=== PATIENT | male | born 1960 | race American Indian/Alaskan Native ===

== ENCOUNTER → 2017-01-16 14:09 | Emergency (ER) | payer MEDICAID ==
[2017-01-16 15:37] VITALS: BMI 27.5
== END | disposition left against medical advice (07) ==
LOC: C.ER 14:09
DX: Z02.89 Encounter for other administrative examinations (principal)

== ENCOUNTER 2017-01-16 14:59 | Inpatient (IN) | payer MEDICAID ==
[2017-01-16 15:37] VITALS: BMI 27.5
[2017-01-16 17:24] LABS: BASO % 0.6 % (0.0-2.0); EOS # 0.4 K/uL (0.0-0.7); EOS % 6.2 % (0.0-4.0); HEMOGLOBIN 11.5 g/dL (12.0-18.0); LYMPH # 0.6 K/uL (1.0-4.3); MEAN CELL VOLUME 90.7 fL (80.0-94.0); MEAN CORPUSCULAR HEMOGLOBIN 29.9 pg (27.0-31.0); MEAN CORPUSCULAR HGB CONC 32.9 g/dL (33.0-37.0); MEAN PLATELET VOLUME 7.9 fL (7.2-11.7); MONO # 0.6 K/uL (0.0-0.8); MONO % 8.4 % (0.0-10.0); NEUT # 5.4 K/uL (1.8-7.0); NEUT % 75.8 % (50.0-75.0); PLATELET COUNT 288 K/uL (130-400); RBC 3.86 Mil/uL (4.40-5.90); RED CELL DISTRIBUTION WIDTH 13.8 % (11.5-14.5); WHITE BLOOD COUNT 7.1 K/uL (4.8-10.8)
[2017-01-16 17:28] LABS: ALBUMIN 3.4 g/dL (3.5-5.0)
[2017-01-16 17:31] LABS: ALB/GLOB RATIO 0.8 (1.0-2.1); GFR AFRICAN-AMERICAN > 60; GFR NON-AFRICAN AMERICAN > 60
[2017-01-16 17:32] LABS: ALT/SGPT 25 U/L (21-72); AST/SGOT 35 U/L (17-59); BLOOD UREA NITROGEN 7 mg/dL (9-20); CALCIUM 8.7 mg/dl (8.6-10.4)
--- NOTE | 2017-01-16 17:36 | C.PDOC ---
History Of Present Illness Patient is a 56 y/o M presenting with worsening shortness of breath and leg swelling x 3 months. Patient reports that he has been scared so has not followed up but reports that his legs have become more swollen and painful. Denies chest pain, fever/chills. Time Seen by Provider: 01/16/17 16:56 Chief Complaint (Nursing): Lower Extremity Problem/Injury Past Medical History Vital Signs: Last Vital Signs Temp 98.3 F 01/16/17 18:37 Pulse 75 01/16/17 18:37 Resp 20 01/16/17 18:37 BP 136/77 01/16/17 18:37 Pulse Ox 97 01/16/17 18:30 - Medical History PMH: No Chronic Diseases Family History: States: No Known Family Hx - Social History Hx Alcohol Use: Yes Hx Substance Use: Yes - Immunization History Hx Tetanus Toxoid Vaccination: No Hx Influenza Vaccination: No Hx Pneumococcal Vaccination: No Review Of Systems Constitutional: Negative for: Fever, Chills Cardiovascular: Positive for: Edema, Light Headedness. Negative for: Chest Pain , Palpitations Respiratory: Positive for: Shortness of Breath, SOB with Excertion. Negative for: Cough Gastrointestinal: Negative for: Nausea, Vomiting, Abdominal Pain, Diarrhea, Constipation Skin: Positive for: Other (ulcerations and swelling to legs) Neurological: Negative for: Weakness, Numbness Physical Exam - Physical Exam Appears: Well, Non-toxic, No Acute Distress Skin: Normal Color, Warm, Dry Head: Atraumatic, Normacephalic Eye(s): bilateral: Normal Inspection, PERRL, EOMI Chest: Symmetrical Cardiovascular: Rhythm Regular Respiratory: Decreased Breath Sounds Gastrointestinal/Abdominal: Soft, No Tenderness, No Mass, No Distention Extremity: Normal ROM, Other (venous stasis changes to b/l lower extremities. pitting edema b/l. L leg swollen as compared to R with slight erythema and warmth) ED Course And Treatment - Laboratory Results Result Diagrams: 01/16/17 17:13 01/16/17 17:13 O2 Sat by Pulse Oximetry: 97 Medical Decision Making Medical Decision Making: Patient presenting with worsening shortness of breath and leg swelling. Differential dx includes but not limited to: chf vs dvt vs cellulitis. EKG shows NSR at 60bpm with isolated t wave inversion in III and t wave flattening in anterior leads. Cxray negative. BNP WNL. Trop x 1 negative. Lasix ordered. 6:11PM U/s ordered to r/o dvt but unable to be performed today. D-dimer added 7:00PM Will sign out to Krystal Franco to follow-up d-dimer and reevaluate. Disposition - Disposition Disposition Time: 19:00 Condition: FAIR - Clinical Impression Clinical Impression: Leg swelling
[2017-01-16 17:39] LABS: CK-MB 0.83 ng/mL (0.0-3.38)
[2017-01-16 17:40] LABS: B-TYPE NATRIURETIC PEPTIDE 396 pg/mL (0-900)
[2017-01-16 18:15] LABS: EOSINOPHIL 6 % (0-4); LYMPHOCYTE 12 % (20-40); MONOCYTE 6 % (0-10); NEUTROPHIL 76 % (50-75); PLATELET ESTIMATE NORMAL (NORMAL); TOTAL CELLS COUNTED 100
[2017-01-16 18:16] LABS: ANISOCYTOSIS SLIGHT; HYPOCHROMIC SLIGHT; POIKILOCYTOSIS SLIGHT
[2017-01-16] MEDS ORDERED: Piperacillin/Tazobact 3.375 gm 100 ML IVPB STA (19:59)
[2017-01-16] MEDS ORDERED: Enoxaparin 40 mg Syringe SC STA (19:59)
[2017-01-16] MEDS ORDERED: Vancomycin 1 GM 1 GM/250 ML BAG IVPB SCH (20:00)
[2017-01-16] MEDS ORDERED: Vancomycin 1 GM 1 GM/250 ML BAG IVPB STA (20:01)
[2017-01-16] MEDS ORDERED: Enoxaparin 60 mg Syringe ONE (20:17)
[2017-01-16] MEDS ORDERED: Enoxaparin 40 mg Syringe ONE (20:17)
[2017-01-16] MEDS ORDERED: Vancomycin 1 GM 1 GM/250 ML BAG IVPB ONE (20:17)
[2017-01-16] MEDS ORDERED: Piperacillin/Tazobact 3.375 gm 100 ML IVPB ONE (20:18)
[2017-01-16] MEDS ORDERED: Iodixanol 320 MG/ML 100 ML BOTTLE IV ONE (20:32)
--- NOTE | 2017-01-16 22:10 | CT ---
EXAM: CT Angiography Chest With Intravenous Contrast CLINICAL HISTORY: 56 years old, male; Signs and symptoms; Shortness of breath; Additional info: + d dimer, SOB TECHNIQUE: Axial computed tomographic angiography images of the chest with intravenous contrast using pulmonary embolism protocol. This CT exam was performed using one or more of the following dose reduction techniques: automated exposure control, adjustment of the mA and/or kV according to patient size, and/or use of iterative reconstruction technique. MIP reconstructed images were created and reviewed. Coronal and sagittal reformatted images were created and reviewed. CONTRAST: 100 mL of visipaque 320 administered intravenously. EXAM DATE/TIME: 01/16/2017 8:00 PM COMPARISON: There are no prior studies for comparison. FINDINGS: Artifacts: Motion artifact degrades image quality. Heart, aorta and Pulmonary arteries: The heart is mildly enlarged.There is trace fluid in pericardial recesses. There coronary calcifications. Bolus timing and motion limit evaluation of pulmonary arteries. There are no central pulmonary emboli. Peripheral vessels are not adequately evaluated. Lungs and pleural spaces: Trachea and main bronchi are patent.There is no pneumothorax. There is minimal dependent atelectasis bilaterally. There is patchy airspace disease in the right middle and lower lobes. There is scarring in the lingula. There is atelectasis and scarring at both lung bases. There are no effusions. Mediastinum: The esophagus is unremarkable. There is a small hiatal hernia. There are mildly prominent precarinal nodes. There is no hilar adenopathy. Thyroid: Thyroid is not optimally demonstrated. Bones/joints: There are no acute osseous abnormalities. There are small Schmorl's nodes at multiple levels Soft tissues: unremarkable Upper abdomen: There are no acute abnormalities in the visualized portion of the abdomen.There is fatty infiltration of the liver. IMPRESSION: Limited by patient motion and bolus timing, no aneurysm, dissection or central pulmonary embolus; mild cardiomegaly and atherosclerotic disease; anterior space disease in right middle and lower lobes Additional findings as described above.
[2017-01-17 05:48] LABS: BASO % 0.8 % (0.0-2.0); EOS % 15.6 % (0.0-4.0); HEMOGLOBIN 11.8 g/dL (12.0-18.0); LYMPH # 0.7 K/uL (1.0-4.3); LYMPH % 10.9 % (20.0-40.0); MEAN CELL VOLUME 90.1 fL (80.0-94.0); MEAN CORPUSCULAR HEMOGLOBIN 30.7 pg (27.0-31.0); MEAN CORPUSCULAR HGB CONC 34.1 g/dL (33.0-37.0); MEAN PLATELET VOLUME 8.2 fL (7.2-11.7); MONO # 0.6 K/uL (0.0-0.8); NEUT % 62.7 % (50.0-75.0); NRBC % 0.1 % (0.0-2.0); RBC 3.85 Mil/uL (4.40-5.90); WHITE BLOOD COUNT 6.4 K/uL (4.8-10.8)
[2017-01-17 05:49] LABS: ALBUMIN 3.1 g/dL (3.5-5.0)
[2017-01-17 05:52] LABS: ALB/GLOB RATIO 0.7 (1.0-2.1); ALT/SGPT 25 U/L (21-72); AST/SGOT 41 U/L (17-59); BLOOD UREA NITROGEN 8 mg/dL (9-20); CALCIUM 8.2 mg/dl (8.6-10.4); GFR AFRICAN-AMERICAN > 60; GFR NON-AFRICAN AMERICAN > 60
[2017-01-17] MEDS: Piperacill/Tazo 3.375gm in Dex 3.375 GM/50 ML BAG IVPB SCH ×3 (06:35→22:21)
--- NOTE | 2017-01-17 08:34 | RAD ---
HISTORY: lower extremity edema COMPARISON: No prior. FINDINGS: LUNGS: No active pulmonary disease. PLEURA: No significant pleural effusion identified, no pneumothorax apparent. CARDIOVASCULAR: Probable top-normal heart size. No luann pulmonary vascular congestion OSSEOUS STRUCTURES: Bilateral shoulder arthrosis VISUALIZED UPPER ABDOMEN: Normal. OTHER FINDINGS: None. IMPRESSION: No active disease.
[2017-01-17] MEDS ORDERED: Potassium Chloride 20 mEq ER Tab PO STA (12:39)
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
[2017-01-17 16:31] VITALS: RESP 20
[2017-01-17 17:03] LABS: BARBITURATES, UR NEGATIVE (NEGATIVE); BENZODIAZEPINES, UR NEGATIVE (NEGATIVE)
[2017-01-17 17:06] LABS: OPIATES, UR POSITIVE (NEGATIVE); PHENCYCLIDINE, UR NEGATIVE (NEGATIVE)
[2017-01-17] MEDS: Dextrose 5%/0.45% NS 1,000 ML IV SCH (19:26)
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
[2017-01-18] MEDS ORDERED: Tmp-Smz 800 mg-160 mg DS Tab PO SCH (00:15)
[2017-01-18] MEDS: Dextrose 5%/0.45% NS 1,000 ML IV SCH (06:03)
[2017-01-18] MEDS: Piperacill/Tazo 3.375gm in Dex 3.375 GM/50 ML BAG IVPB SCH ×3 (06:07→21:26)
--- NOTE | 2017-01-18 08:07 | CP.PCM.PN ---
Subjective - Subjective Subjective: House doctor note (PGY 1) A rapid response was called for elevated blood pressure of 176/114, with a repeat BP 180/110 with a pulse rate of 69. Patient was asymptomatic. Patient denied chest pain, shortness of breath, abd pain and blurry vision, but admits to mild headache and nausea. Patient was given: 1.Hydralazine 10mg IV stat at bedside 2.Clonidine 0.1mg Q6 prh 3.Zofran 4mg IVP stat 4.Protonix 40mg IV Repeat blood pressure at 8:20am: 172/115 Repeat blood pressure at 9:15am: 162/112 * Another Hydralazine 10mg IV push stat as per Dr. Porfirio Garner Recommendation: Psychiatry consult for history of substance abuse * As per nurse, a phone call was made to Dr. Rodriguez regarding patient's history A phone call was made to Dr. Trujillo and I left a voicemail. Further medical management by Dr. Trujillo Objective - Vital Signs/Intake and Output Vital Signs (last 24 hours): Temp Pulse Resp BP Pulse Ox 98.3 F 60 20 180/110 H 95 01/18/17 07:37 01/18/17 07:37 01/18/17 07:37 01/18/17 07:37 01/18/17 07:37 Intake and Output: 01/18/17 01/18/17 06:59 18:59 Intake Total 1450 Balance 1450 - Medications Medications: Current Medications Acetaminophen (Tylenol 325mg Tab) 650 mg PO Q6 PRN PRN Reason: Pain, moderate (4-7) Clonidine HCl (Catapres) 0.1 mg PO Q6H PRN PRN Reason: Agitation Furosemide (Lasix) 40 mg IVP DAILY [facility] Last Admin: 01/17/17 10:03 Dose: 40 mg Piperacillin Sod/Tazobactam Sod (Zosyn 3.375 Gm Iv Premix) 3.375 gm in 50 mls @ 100 mls/hr IVPB Q8 [facility] Last Admin: 01/18/17 06:07 Dose: 100 mls/hr Metoclopramide HCl (Reglan) 10 mg IVP Q8 [facility] Last Admin: 01/18/17 06:05 Dose: 10 mg Ondansetron HCl (Zofran Inj) 4 mg IVP Q6 PRN PRN Reason: Nausea/Vomiting Last Admin: 01/17/17 17:41 Dose: 4 mg Pantoprazole Sodium (Protonix Inj) 40 mg IVP DAILY [facility] Last Admin: 01/17/17 22:18 Dose: 40 mg - Labs Labs: 01/17/17 05:45 01/17/17 05:45 - Constitutional Appears: Well, No Acute Distress - Head Exam Head Exam: NORMAL INSPECTION, NORMOCEPHALIC - Eye Exam Eye Exam: EOMI, Normal appearance - ENT Exam ENT Exam: Mucous Membranes Moist, Normal Exam - Respiratory Exam Respiratory Exam: Clear to Ausculation Bilateral, NORMAL BREATHING PATTERN - Cardiovascular Exam Cardiovascular Exam: REGULAR RHYTHM, +S1, +S2 - GI/Abdominal Exam GI & Abdominal Exam: Soft, Normal Bowel Sounds - Neurological Exam Neurological Exam: Alert, Awake - Skin Skin Exam: Normal Color, Warm Assessment and Plan (1) Uncontrolled hypertension Assessment & Plan: Rapid response: Hydralazine 10mg IV stat at bedside 2.Clonidine 0.1mg Q6 prn 3.Zofran 4mg IVP stat 4.Protonix 40mg IV Repeat blood pressure at 8:20am: 172/115 Repeat blood pressure at 9:15am: 162/112 * Another Hydralazine 10mg IV push stat as per Dr. Porfirio Garner at 9:21am A phone call was made to Dr. Trujillo and I left a voicemail. Further medical management by Dr. Trujillo Status: Acute (2) Substance abuse withdrawal Assessment & Plan: Recommendation: Psychiatry consult for history of substance abuse * As per nurse, a phone call was made to Dr. Rodriguez regarding patient's history Status: Acute
[2017-01-18 08:14] LABS: BASO # 0.1 K/uL (0.0-0.2); BASO % 0.8 % (0.0-2.0); EOS # 0.2 K/uL (0.0-0.7); EOS % 2.1 % (0.0-4.0); HEMOGLOBIN 13.7 g/dL (12.0-18.0); LYMPH # 0.9 K/uL (1.0-4.3); LYMPH % 10.3 % (20.0-40.0); MEAN CELL VOLUME 90.2 fL (80.0-94.0); MEAN CORPUSCULAR HEMOGLOBIN 30.4 pg (27.0-31.0); MEAN CORPUSCULAR HGB CONC 33.7 g/dL (33.0-37.0); MEAN PLATELET VOLUME 8.2 fL (7.2-11.7); MONO # 1.2 K/uL (0.0-0.8); MONO % 13.5 % (0.0-10.0); NEUT # 6.3 K/uL (1.8-7.0); NEUT % 73.3 % (50.0-75.0); NRBC % 0.1 % (0.0-2.0); RBC 4.5 Mil/uL (4.40-5.90); RED CELL DISTRIBUTION WIDTH 13.7 % (11.5-14.5); WHITE BLOOD COUNT 8.6 K/uL (4.8-10.8)
[2017-01-18 08:23] LABS: ALBUMIN 3.9 g/dL (3.5-5.0)
[2017-01-18 08:26] LABS: AST/SGOT 34 U/L (17-59); GFR AFRICAN-AMERICAN > 60; GFR NON-AFRICAN AMERICAN > 60
[2017-01-18 08:27] LABS: ALB/GLOB RATIO 0.8 (1.0-2.1); ALBUMIN 3.9 g/dL (3.5-5.0); ALT/SGPT 23 U/L (21-72); BLOOD UREA NITROGEN 11 mg/dL (9-20); CALCIUM 9.8 mg/dl (8.6-10.4)
[2017-01-18 08:30] LABS: ALB/GLOB RATIO 0.8 (1.0-2.1); ALT/SGPT 25 U/L (21-72); AST/SGOT 33 U/L (17-59); BILIRUBIN,DIRECT 0.6 mg/dL (0.0-0.4); BLOOD UREA NITROGEN 11 mg/dL (9-20); CALCIUM 9.7 mg/dl (8.6-10.4); GFR AFRICAN-AMERICAN > 60; GFR NON-AFRICAN AMERICAN > 60
[2017-01-18] MEDS ORDERED: Aluminum Hydroxide/Magnesium Hydroxide Susp (30 mL) PO PRN (09:45)
--- NOTE | 2017-01-18 09:45 | PCM.PSYCH ---
Initial Psychiatric Evaluation - Initial Psychiatric Evaluation Type of Admission: Voluntary Legal Status: Capacity Chief Complaint (in patient's own words): 'I have pain in my legs and am going through heroin withdrawal' History of Present Illness and Precipitating Events: Patient is a 56 year-old male, who lives alone, came to the hospital with leg pain. We were consulted due to heroin abuse and withdrawal. Patient denies any previous psychiatric history, and past psychiatric hospitalizations. Patient states that he sniffs 10 bags of heroin per day with his last use being 2 days ago, and drinks 1-3 oz. of liquor, and 12 oz. beer everyday. Patient reports withdrawal s/s nausea, vomiting, diarrhea, back pain, and leg pain. Patient denies any hallucinations or any psychotic s/s. He reports irritable mood, but denies any feelings of hopelessness and helplessness. He denies any suicidal ideation and denies any previous suicide attempts. Past medical history Denies Current Medications: Active Medications Generic Name Dose Route Start Last Admin Trade Name Freq PRN Reason Stop Dose Admin Acetaminophen 650 mg 01/17/17 17:33 Tylenol 325mg Tab PO Q6 PRN Pain, moderate (4-7) Clonidine HCl 0.1 mg 01/18/17 07:55 01/18/17 08:05 Catapres PO 0.1 mg Q6H PRN Administration Agitation Furosemide 40 mg 01/17/17 10:00 01/17/17 10:03 Lasix IVP 40 mg DAILY [facility] Administration Heparin Sodium (Porcine) 5,000 units 01/18/17 10:00 Heparin SC Q12 [facility] Piperacillin Sod/Tazobactam Sod 3.375 gm in 50 mls @ 100 mls/hr 01/17/17 06: 00 01/18/17 06:07 Zosyn 3.375 Gm Iv Premix IVPB 100 mls/hr Q8 [facility] Administration Metoclopramide HCl 10 mg 01/18/17 06:00 01/18/17 06:05 Reglan IVP 10 mg Q8 [facility] Administration Ondansetron HCl 4 mg 01/17/17 17:32 01/17/17 17:41 Zofran Inj IVP 4 mg Q6 PRN Administration Nausea/Vomiting Pantoprazole Sodium 40 mg 01/17/17 22:03 01/17/17 22:18 Protonix Inj IVP 40 mg DAILY [facility] Administration Past Psychiatric History - Past Psychiatric History Previous Treatment History: None Pertinent Medical Hx (Current Medical&Sleep Prob, Allergies): Allergies Allergy/AdvReac Type Severity Reaction Status Date / Time No Known Allergies Allergy Verified 01/16/17 15:37 No Known Home Med 01/16/17 Review of Systems - Review of Systems All systems: reviewed and no additional remarkable complaints except - Psychiatric Psychiatric: Anxiety, Depression, Irritability, Suicidal Ideation Mental Status Examination - Personal Presentation Personal Presentation: Looks stated age - Affect Affect: Constricted - Motor Activity Motor Activity: Calm - Reliability in Providing Information Reliability in Providing Information: Good - Speech Speech: Organized - Mood Mood: Anxious - Formal Thought Process Formal Thought Process: No Impairment - Obsessions/Compulsions Obsessions: No Compulsions: No - Cognitive Functions Orientation: Person, Place, Situation, Time Sensorium: Alert Attention/Concentration: Attentive Abstract Thinking: [place] Estimate of Intelligence: Below average Judgement: Imparied, as evidence by: Poor judgement, Intact, as evidence by: Insight regarding need for hospitalization - Risk Risk: Withdrawal, Diminished functioning - Strength & Assets Inventory Strength & Assets Inventory: Cooperative - Limitations Limitations: Living alone DSM 5 DX - DSM 5 DSM 5 Diagnosis: Opioid use disorder Severe Opioid withdrawal Alcohol use disorder moderate - Recommended/Plan of Treatment Treatment Recommendations and Plan of Treatment: Opioid use disorder severe CBT Psychoeducation Supportive therapy, individual therapy Use RI for abstinence Opioid withdrawal CBT Psychoeducation Supportive therapy, individual therapy Clonidine when necessary Methadone taper Alcohol use disorder moderate CBT Psychoeducation Supportive therapy, individual therapy Use RI for abstinence - Smoking Cessation Smoking Cessation Initiated: No
[2017-01-18] MEDS ORDERED: Potassium Chloride 20 mEq ER Tab PO SCH (12:45)
--- NOTE | 2017-01-18 13:34 | CP.PCM.PN ---
Subjective - Date & Time of Evaluation Date of Evaluation: 01/18/17 Time of Evaluation: 13:32 - Subjective Subjective: OPIOD WITHDRAWAL SYMPTOMS BP UP, ON NORVASC+ CLONIDINE PSYCH EVAL NOTED ON METHADONE REFUSED GI W/U CONT IV AB FOR VENOUS STASIS [facility] Objective - Vital Signs/Intake and Output Vital Signs (last 24 hours): Temp Pulse Resp BP Pulse Ox 98.3 F 60 20 166/112 H 95 01/18/17 07:37 01/18/17 07:37 01/18/17 07:37 01/18/17 10:03 01/18/17 07:37 Intake and Output: 01/18/17 01/18/17 11:59 23:59 Intake Total 1100 Balance 1100 - Medications Medications: Current Medications Acetaminophen (Tylenol 325mg Tab) 650 mg PO Q6 PRN PRN Reason: Pain, moderate (4-7) Last Admin: 01/18/17 11:41 Dose: 650 mg Al Hydrox/Mg Hydrox/Simethicone (Maalox 30 Ml) 30 ml PO TID PRN PRN Reason: Indigestion / Heartburn Amlodipine Besylate (Norvasc) 10 mg PO DAILY [facility] Clonidine HCl (Catapres) 0.1 mg PO Q6H [facility] Last Admin: 01/18/17 12:43 Dose: 0.1 mg Furosemide (Lasix) 40 mg IVP DAILY [facility] Last Admin: 01/18/17 10:03 Dose: 40 mg Heparin Sodium (Porcine) (Heparin) 5,000 units SC Q12 [facility] Last Admin: 01/18/17 10:30 Dose: Not Given Hydroxyzine HCl (Atarax) 25 mg PO Q6 PRN PRN Reason: Anxiety Piperacillin Sod/Tazobactam Sod (Zosyn 3.375 Gm Iv Premix) 3.375 gm in 50 mls @ 100 mls/hr IVPB Q8 [facility] Last Admin: 01/18/17 06:07 Dose: 100 mls/hr Potassium Chloride (Potassium Chloride 20 Meq/100 Ml) 20 meq in 100 mls @ 50 mls/hr IVPB ONCE ONE Stop: 01/18/17 15:59 Loperamide HCl (Imodium) 2 mg PO Q8 PRN PRN Reason: Diarrhea Metoclopramide HCl (Reglan) 10 mg IVP Q8 [facility] Last Admin: 01/18/17 06:05 Dose: 10 mg Ondansetron HCl (Zofran Tab) 4 mg PO Q8 PRN PRN Reason: Nausea/Vomiting Pantoprazole Sodium (Protonix Inj) 40 mg IVP DAILY [facility] Last Admin: 01/18/17 11:46 Dose: Not Given Potassium Chloride (K-Dur 20 Meq Er Tab) 40 meq PO DAILY [facility] Potassium Chloride (K-Dur 20 Meq Er Tab) 40 meq PO Q4H [facility] Stop: 01/18/17 20:46 Last Admin: 01/18/17 12:42 Dose: 40 meq - Labs Labs: 01/18/17 08:05 01/18/17 08:05
--- NOTE | 2017-01-18 13:54 | CARD ---
APPROVED REPORT EKG Measurement Heart [id number] <Conclusion> Normal sinus rhythm Nonspecific T wave abnormality Abnormal ECG
[2017-01-18] MEDS: Potassium Chloride 20 mEq ER Tab PO SCH ×2 (17:00→21:27)
[2017-01-18] MEDS: Ammonium Lactate 12% Lotion (225 g) EXT SCH (21:25)
--- NOTE | 2017-01-18 22:52 | CP.PCM.PN ---
Subjective - Date & Time of Evaluation Date of Evaluation: 01/18/17 Time of Evaluation: 22:52 - Subjective Subjective: AFEBRILE FEELING BETTER SEEN BY PSYCH FOR OPIOID WITHDRAWAL.. lESS DIARRHEA. bILATERAL LOWER EXTREMITY WRAPPED UP WITH DRESSING C/D/I. Objective - Vital Signs/Intake and Output Vital Signs (last 24 hours): Temp Pulse Resp BP Pulse Ox 98.0 F 73 20 116/75 100 01/18/17 16:00 01/18/17 16:00 01/18/17 16:00 01/18/17 16:00 01/18/17 16:00 Intake and Output: 01/18/17 01/19/17 18:59 06:59 Intake Total 1150 350 Output Total 1 400 Balance 1149 -50 - Medications Medications: Current Medications Acetaminophen (Tylenol 325mg Tab) 650 mg PO Q6 PRN PRN Reason: Pain, moderate (4-7) Last Admin: 01/18/17 11:41 Dose: 650 mg Al Hydrox/Mg Hydrox/Simethicone (Maalox 30 Ml) 30 ml PO TID PRN PRN Reason: Indigestion / Heartburn Amlodipine Besylate (Norvasc) 10 mg PO DAILY [facility] Last Admin: 01/18/17 14:19 Dose: 10 mg Clonidine HCl (Catapres) 0.1 mg PO Q6H [facility] Last Admin: 01/18/17 18:35 Dose: 0.1 mg Furosemide (Lasix) 20 mg IVP DAILY [facility] Heparin Sodium (Porcine) (Heparin) 5,000 units SC Q12 [facility] Last Admin: 01/18/17 21:28 Dose: 5,000 units Hydroxyzine HCl (Atarax) 25 mg PO Q6 PRN PRN Reason: Anxiety Piperacillin Sod/Tazobactam Sod (Zosyn 3.375 Gm Iv Premix) 3.375 gm in 50 mls @ 100 mls/hr IVPB Q8 [facility] Last Admin: 01/18/17 21:26 Dose: 100 mls/hr Lactic Acid (Lac-Hydrin 12% Lotion (225 G)) 0 gm EXT BID [facility] Last Admin: 01/18/17 21:25 Dose: 1 gm Loperamide HCl (Imodium) 2 mg PO Q8 PRN PRN Reason: Diarrhea Metoclopramide HCl (Reglan) 10 mg IVP Q8 [facility] Last Admin: 01/18/17 21:29 Dose: 10 mg Ondansetron HCl (Zofran Tab) 4 mg PO Q8 PRN PRN Reason: Nausea/Vomiting Pantoprazole Sodium (Protonix Inj) 40 mg IVP DAILY [facility] Last Admin: 01/18/17 11:46 Dose: Not Given Potassium Chloride (K-Dur 20 Meq Er Tab) 40 meq PO DAILY [facility] - Labs Labs: 01/18/17 08:05 01/18/17 08:05 - Constitutional Appears: No Acute Distress - Head Exam Head Exam: NORMAL INSPECTION - Eye Exam Eye Exam: EOMI, PERRL - ENT Exam ENT Exam: Normal Oropharynx (NO THRUSH) - Neck Exam Neck Exam: Normal Inspection Additional comments: . - Respiratory Exam Respiratory Exam: Clear to Ausculation Bilateral - Cardiovascular Exam Cardiovascular Exam: REGULAR RHYTHM, +S1, +S2 - GI/Abdominal Exam GI & Abdominal Exam: Soft, Normal Bowel Sounds. absent: Tenderness - Extremities Exam Extremities Exam: Pedal Edema (BILATERAL LOWER EXTREMITY VENOUS ULCERS WITH DRAINAGE.). absent: Calf Tenderness - Neurological Exam Neurological Exam: Awake, CN II-XII Intact, Oriented x3, Reflexes Normal - Psychiatric Exam Psychiatric exam: Normal Mood - Skin Skin Exam: Normal Color, Warm Assessment and Plan (1) Aspiration pneumonia Assessment & Plan: ct CHEST ANGO - -VE PE, +VE FOR ANTERIOR AIRSPACE OPACITY RIGHT MIDDLE/RLL. continue IV Zosyn 3.375 every 8 hourly hourly 01/17/17. Sputum Gram stain and culture. fOLLOW-UP CULTURES TO ADJUST ANTIBIOTICS. Status: Acute (2) Cellulitis Assessment & Plan: BILATERAL LOWER EXTREMITY +VE DRESSING C/D/I. wOUND CULTURE- LEG PENDING cONTINUE iv ANTIBIOTICS AND LOCAL WOUND CARE.. Status: Acute (3) D-dimer, elevated Status: Acute (4) Leg swelling Status: Acute (5) Diarrhea Assessment & Plan: IMPROVING. Status: Acute
[2017-01-19] MEDS: Piperacill/Tazo 3.375gm in Dex 3.375 GM/50 ML BAG IVPB SCH ×3 (05:31→21:57)
[2017-01-19 08:46] LABS: BLOOD UREA NITROGEN 19 mg/dL (9-20); GFR AFRICAN-AMERICAN > 60; GFR NON-AFRICAN AMERICAN 57
[2017-01-19 08:47] LABS: CALCIUM 9.1 mg/dl (8.6-10.4)
[2017-01-19] MEDS: Ammonium Lactate 12% Lotion (225 g) EXT SCH ×2 (09:36→17:15)
[2017-01-19] MEDS ORDERED: Potassium Chloride 20 mEq ER Tab PO SCH (10:00)
--- NOTE | 2017-01-19 10:15 | VASCLAB ---
PROCEDURE: Lower Extremity Venous Duplex Exam. HISTORY: leg swelling PRIORS: None. TECHNIQUE: Bilateral common femoral, femoral, popliteal and posterior tibial, peroneal and great saphenous veins were evaluated. Flow was assessed with color Doppler, compressibility, assessment of phasic flow and augmentation response. Report prepared by RIANNA Guevara, RVT FINDINGS: RIGHT: 1. Common Femoral Vein: 1.1. Compressibility - Fully compressible: Thrombus - None : Flow - Phasic: Augmentation -Normal: Reflux - None. 2. Femoral Vein: 2.1. Compressibility - Fully compressible: Thrombus - None : Flow - Phasic: Augmentation -Normal: Reflux - None. 3. Popliteal Vein: 3.1. Compressibility - Fully compressible: Thrombus - None : Flow - Phasic: Augmentation -Normal: Reflux - Severe. 4. Posterior Tibial Vein: 4.1. Compressibility - Fully compressible: Thrombus - None: Flow - Phasic: Augmentation -Normal: Reflux - None. 5. Peroneal Vein: 5.1. Compressibility - Fully compressible: Thrombus - None: Flow - Phasic: Augmentation -Normal: Reflux - None. 6. Great Saphenous Vein: 6.1. Compressibility - Fully compressible: Thrombus - None: Flow - Phasic: Augmentation - Normal: Reflux - None. LEFT: 1. Common Femoral Vein: 1.1. Compressibility - Fully compressible: Thrombus - None: Flow - Phasic: Augmentation -Normal: Reflux - None. 2. Femoral Vein: 2.1. Compressibility - Fully compressible: Thrombus - None: Flow - Phasic: Augmentation -Normal: Reflux - None. 3. Popliteal Vein: 3.1. Compressibility - Fully compressible: Thrombus - None : Flow - Phasic: Augmentation -Normal: Reflux - None. 4. Posterior Tibial Vein: 4.1. Compressibility - Fully compressible: Thrombus - None: Flow - Phasic: Augmentation -Normal: Reflux - None. 5. Peroneal Vein: 5.1. Compressibility - Fully compressible: Thrombus - None: Flow - Phasic: Augmentation -Normal: Reflux - None. 6. Great Saphenous Vein: 6.1. Compressibility - Fully compressible: Thrombus - None: Flow - Phasic: Augmentation - Normal: Reflux - None. OTHER FINDINGS: Right: Severe valvular incompetence of the right popliteal vein. Left: None significant. IMPRESSION: Right: No evidence of deep or superficial vein thrombosis of the right lower extremity. Left: No evidence of deep or superficial vein thrombosis of the left lower extremity. Normal valve function noted of the left side.
--- NOTE | 2017-01-19 13:40 | CP.PCM.PN ---
Subjective - Date & Time of Evaluation Date of Evaluation: 01/19/17 Time of Evaluation: 13:39 - Subjective Subjective: WOUND SHOWING STAPH AUR, AWAITING SEN. P/E SAME REFUSING IVS Objective - Vital Signs/Intake and Output Vital Signs (last 24 hours): Temp Pulse Resp BP Pulse Ox 98.1 F 53 L 20 99/61 L 96 01/19/17 08:00 01/19/17 08:00 01/19/17 08:00 01/19/17 08:00 01/19/17 08:00 - Medications Medications: Current Medications Acetaminophen (Tylenol 325mg Tab) 650 mg PO Q6 PRN PRN Reason: Pain, moderate (4-7) Last Admin: 01/18/17 11:41 Dose: 650 mg Al Hydrox/Mg Hydrox/Simethicone (Maalox 30 Ml) 30 ml PO TID PRN PRN Reason: Indigestion / Heartburn Amlodipine Besylate (Norvasc) 10 mg PO DAILY [facility] Last Admin: 01/19/17 10:05 Dose: Not Given Clonidine HCl (Catapres) 0.1 mg PO Q6H [facility] Last Admin: 01/19/17 13:24 Dose: 0.1 mg Furosemide (Lasix) 20 mg IVP DAILY [facility] Last Admin: 01/19/17 10:05 Dose: Not Given Heparin Sodium (Porcine) (Heparin) 5,000 units SC Q12 [facility] Last Admin: 01/19/17 09:31 Dose: 5,000 units Hydroxyzine HCl (Atarax) 25 mg PO Q6 PRN PRN Reason: Anxiety Piperacillin Sod/Tazobactam Sod (Zosyn 3.375 Gm Iv Premix) 3.375 gm in 50 mls @ 100 mls/hr IVPB Q8 [facility] Last Admin: 01/19/17 05:31 Dose: 100 mls/hr Lactic Acid (Lac-Hydrin 12% Lotion (225 G)) 0 gm EXT BID [facility] Last Admin: 01/19/17 09:36 Dose: 1 gm Loperamide HCl (Imodium) 2 mg PO Q8 PRN PRN Reason: Diarrhea Methadone HCl (Methadone) 15 mg PO DAILY [facility] PRN Reason: Taper Stop: 01/22/17 10:14 Last Admin: 01/19/17 10:14 Dose: 15 mg Metoclopramide HCl (Reglan) 10 mg IVP Q8 [facility] Last Admin: 01/19/17 13:25 Dose: 10 mg Ondansetron HCl (Zofran Tab) 4 mg PO Q8 PRN PRN Reason: Nausea/Vomiting Pantoprazole Sodium (Protonix Inj) 40 mg IVP DAILY [facility] Last Admin: 01/19/17 09:29 Dose: 40 mg - Labs Labs: 01/18/17 08:05 01/19/17 08:18
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
--- NOTE | 2017-01-19 16:51 | CARD ---
APPROVED REPORT EXAM: Two-dimensional and M-mode echocardiogram with Doppler and color Doppler. Other Information Quality : GoodRhythm : NSR INDICATION Dyspnea Congestive Heart Failure LEG EDEMA M-Mode DIMENSIONS RVDd2.14 (2.1-3.2cm)Left Atrium (MM)5.02 (2.5-4.0cm) IVSd1.07 (0.7-1.1cm)Aortic Root3.76 (2.2-3.7cm) LVDd5.64 (4.0-5.6cm)Aortic Cusp Exc.1.92 (1.5-2.0cm) PWd1.07 (0.7-1.1cm)FS (%) 44 % LVDs3.17 (2.0-3.8cm)LVEF (%)74 (>50%) Mitral Valve MV E Mgndyici42.8cm/sMV A Qleqhyat84.4cm/sE/A ratio0.8 TDI E/Lateral E'0.0E/Medial E'0.0 Tricuspid Valve TR Peak Irikjyqi126wv/sTR Peak Gr.10giGcNITH50uyGm LEFT VENTRICLE The left ventricle is normal size. There is normal left ventricular wall thickness. Left ventricle systolic function is normal. The Ejection Fraction is 65-70%. There is normal LV segmental wall motion. Transmitral Doppler flow pattern is Grade I-abnormal relaxation pattern. There is no ventricular septal defect visualized. RIGHT VENTRICLE The right ventricle is mildly dilated. The right ventricular systolic function is normal. ATRIA The left atrium is borderline dilated. The right atrium is mildly dilated. AORTIC VALVE The aortic valve is mildly sclerotic. The aortic valve is trileaflet. No aortic regurgitation is present. There is no aortic valvular stenosis. MITRAL VALVE The mitral valve is normal in structure. There is no evidence of mitral valve prolapse. There is no mitral valve regurgitation noted. TRICUSPID VALVE The tricuspid valve is normal in structure. There is trace tricuspid regurgitation. Right ventricular systolic pressure is estimated at less than 30 mmHg. There is no pulmonary hypertension. PULMONIC VALVE The pulmonic valve is not well visualized. There is trace pulmonic valvular regurgitation. GREAT VESSELS The IVC is normal in size and collapses >50% with inspiration. PERICARDIAL EFFUSION There is no pericardial effusion. <Conclusion> Left ventricle systolic function is normal. The Ejection Fraction is 65-70%. Transmitral Doppler flow pattern is Grade I-abnormal relaxation pattern. The right ventricle is mildly dilated.
--- NOTE | 2017-01-19 22:53 | CP.PCM.PN ---
Subjective - Date & Time of Evaluation Date of Evaluation: 01/19/17 Time of Evaluation: 22:53 - Subjective Subjective: AFEBRILE, BP 99/66 SEEN BY PODIATRY AND APPRECIATED BILATERAL LOWER EXTREMITY DRESSINGS IN PLACE. WOUND CULTURE +VE STAPH AUREUS -SENSITIVITY PENDING.. Objective - Vital Signs/Intake and Output Vital Signs (last 24 hours): Temp Pulse Resp BP Pulse Ox 98.1 F 53 L 20 99/61 L 96 01/19/17 08:00 01/19/17 08:00 01/19/17 08:00 01/19/17 08:00 01/19/17 08:00 Intake and Output: 01/19/17 01/20/17 18:59 06:59 Intake Total 410 Balance 410 - Medications Medications: Current Medications Acetaminophen (Tylenol 325mg Tab) 650 mg PO Q6 PRN PRN Reason: Pain, moderate (4-7) Last Admin: 01/18/17 11:41 Dose: 650 mg Al Hydrox/Mg Hydrox/Simethicone (Maalox 30 Ml) 30 ml PO TID PRN PRN Reason: Indigestion / Heartburn Amlodipine Besylate (Norvasc) 10 mg PO DAILY [facility] Last Admin: 01/19/17 10:05 Dose: Not Given Clonidine HCl (Catapres) 0.1 mg PO Q6H [facility] Last Admin: 01/19/17 17:50 Dose: 0.1 mg Furosemide (Lasix) 20 mg IVP DAILY [facility] Last Admin: 01/19/17 10:05 Dose: Not Given Heparin Sodium (Porcine) (Heparin) 5,000 units SC Q12 [facility] Last Admin: 01/19/17 21:56 Dose: 5,000 units Hydroxyzine HCl (Atarax) 25 mg PO Q6 PRN PRN Reason: Anxiety Piperacillin Sod/Tazobactam Sod (Zosyn 3.375 Gm Iv Premix) 3.375 gm in 50 mls @ 100 mls/hr IVPB Q8 [facility] Last Admin: 01/19/17 21:57 Dose: 100 mls/hr Lactic Acid (Lac-Hydrin 12% Lotion (225 G)) 0 gm EXT BID [facility] Last Admin: 01/19/17 17:15 Dose: 225 gm Loperamide HCl (Imodium) 2 mg PO Q8 PRN PRN Reason: Diarrhea Methadone HCl (Methadone) 15 mg PO DAILY [facility] PRN Reason: Taper Stop: 01/22/17 10:14 Last Admin: 01/19/17 10:14 Dose: 15 mg Metoclopramide HCl (Reglan) 10 mg IVP Q8 [facility] Last Admin: 01/19/17 21:56 Dose: 10 mg Ondansetron HCl (Zofran Tab) 4 mg PO Q8 PRN PRN Reason: Nausea/Vomiting Pantoprazole Sodium (Protonix Inj) 40 mg IVP DAILY [facility] Last Admin: 01/19/17 09:29 Dose: 40 mg - Labs Labs: 01/18/17 08:05 01/19/17 08:18 - Constitutional Appears: No Acute Distress - Head Exam Head Exam: NORMAL INSPECTION - Eye Exam Eye Exam: EOMI, PERRL - ENT Exam ENT Exam: Normal Oropharynx - Neck Exam Neck Exam: Normal Inspection - Respiratory Exam Respiratory Exam: Rhonchi (RIGHT-SIDED.) - Cardiovascular Exam Cardiovascular Exam: REGULAR RHYTHM, +S1, +S2 - GI/Abdominal Exam GI & Abdominal Exam: Soft, Normal Bowel Sounds - Extremities Exam Extremities Exam: Pedal Edema. absent: Calf Tenderness Additional comments: S/P DEBRIDEMENT OF HYPERKERATOTIC CALLUS FOOT PER PODIATRY .BILATERAL DRESSINGS NOTED LOWER EXTREMITIES - Neurological Exam Neurological Exam: Awake, CN II-XII Intact, Oriented x3 - Psychiatric Exam Psychiatric exam: Normal Mood - Skin Skin Exam: Normal Color, Warm Assessment and Plan (1) Aspiration pneumonia Assessment & Plan: FOLLOW-UP CHEST X-RAY IN 2-3 DAYS. fOLLOW-UP SPUTUM CULTURE CONTINUE iv zOSYN ORDERED. Status: Acute (2) Cellulitis Assessment & Plan: DUPLEX VENOUS STUDIES NEGATIVE FOR DVT BOTH LOWER EXTREMITIES. wOUND CULTURE +VE STAPH AUREUS-SENSITIVITY PENDING cONTINUE iv zOSYN. LWC PER PODIATRY Status: Acute (3) D-dimer, elevated Status: Acute (4) Leg swelling Status: Acute (5) Diarrhea Assessment & Plan: IMPROVING. pOTASSIUM SUPPLEMENT PER pmd. Status: Acute
[2017-01-20] MEDS: Piperacill/Tazo 3.375gm in Dex 3.375 GM/50 ML BAG IVPB SCH (05:54)
[2017-01-20] MEDS: Ammonium Lactate 12% Lotion (225 g) EXT SCH ×2 (10:11→17:56)
--- NOTE | 2017-01-20 13:24 | CP.PCM.PN ---
Subjective - Date & Time of Evaluation Date of Evaluation: 01/20/17 Time of Evaluation: 13:23 - Subjective Subjective: EXT: LESSEDEMA ULCERS HEALING C/S STAPH A. REST TO CLINDA , D/W ID Objective - Vital Signs/Intake and Output Vital Signs (last 24 hours): Temp Pulse Resp BP Pulse Ox 97.8 F 54 L 20 109/71 97 01/20/17 08:00 01/20/17 08:00 01/20/17 08:00 01/20/17 12:44 01/20/17 08:00 - Medications Medications: Current Medications Acetaminophen (Tylenol 325mg Tab) 650 mg PO Q6 PRN PRN Reason: Pain, moderate (4-7) Last Admin: 01/18/17 11:41 Dose: 650 mg Al Hydrox/Mg Hydrox/Simethicone (Maalox 30 Ml) 30 ml PO TID PRN PRN Reason: Indigestion / Heartburn Amlodipine Besylate (Norvasc) 10 mg PO DAILY [facility] Last Admin: 01/19/17 10:05 Dose: Not Given Clonidine HCl (Catapres) 0.1 mg PO Q6H [facility] Last Admin: 01/20/17 12:45 Dose: Not Given Furosemide (Lasix) 20 mg IVP DAILY [facility] Last Admin: 01/19/17 10:05 Dose: Not Given Heparin Sodium (Porcine) (Heparin) 5,000 units SC Q12 [facility] Last Admin: 01/20/17 10:10 Dose: 5,000 units Hydroxyzine HCl (Atarax) 25 mg PO Q6 PRN PRN Reason: Anxiety Cefazolin Sodium 1,000 mg/ (Sodium Chloride) 100 mls @ 200 mls/hr IVPB Q8H [facility] Lactic Acid (Lac-Hydrin 12% Lotion (225 G)) 0 gm EXT BID [facility] Last Admin: 01/20/17 10:11 Dose: 1 gm Loperamide HCl (Imodium) 2 mg PO Q8 PRN PRN Reason: Diarrhea Methadone HCl (Methadone) 10 mg PO DAILY [facility] PRN Reason: Taper Stop: 01/22/17 10:14 Last Admin: 01/20/17 10:10 Dose: 15 mg Metoclopramide HCl (Reglan) 10 mg IVP Q8 [facility] Last Admin: 01/20/17 05:54 Dose: 10 mg Ondansetron HCl (Zofran Tab) 4 mg PO Q8 PRN PRN Reason: Nausea/Vomiting Pantoprazole Sodium (Protonix Inj) 40 mg IVP DAILY [facility] Last Admin: 01/20/17 10:15 Dose: Not Given - Labs Labs: 01/18/17 08:05 01/19/17 08:18
--- NOTE | 2017-01-20 23:20 | CP.PCM.PN ---
Subjective - Date & Time of Evaluation Date of Evaluation: 01/20/17 Time of Evaluation: 23:20 - Subjective Subjective: AFEBRILE, lESS EDEMA LOWER EXTREMITIES dENIES COUGH OR SHORTNESS OF BREATH. WOUND CULTURE-+VE MSSA. Objective - Vital Signs/Intake and Output Vital Signs (last 24 hours): Temp Pulse Resp BP Pulse Ox 98.4 F 53 L 20 113/77 95 01/20/17 16:00 01/20/17 16:00 01/20/17 16:00 01/20/17 16:00 01/20/17 16:00 Intake and Output: 01/20/17 01/21/17 18:59 06:59 Intake Total 460 500 Balance 460 500 - Medications Medications: Current Medications Acetaminophen (Tylenol 325mg Tab) 650 mg PO Q6 PRN PRN Reason: Pain, moderate (4-7) Last Admin: 01/18/17 11:41 Dose: 650 mg Al Hydrox/Mg Hydrox/Simethicone (Maalox 30 Ml) 30 ml PO TID PRN PRN Reason: Indigestion / Heartburn Amlodipine Besylate (Norvasc) 10 mg PO DAILY [facility] Last Admin: 01/19/17 10:05 Dose: Not Given Clonidine HCl (Catapres) 0.1 mg PO Q6H [facility] Last Admin: 01/20/17 19:14 Dose: Not Given Furosemide (Lasix) 20 mg IVP DAILY [facility] Last Admin: 01/19/17 10:05 Dose: Not Given Heparin Sodium (Porcine) (Heparin) 5,000 units SC Q12 [facility] Last Admin: 01/20/17 21:12 Dose: 5,000 units Hydroxyzine HCl (Atarax) 25 mg PO Q6 PRN PRN Reason: Anxiety Cefazolin Sodium 1,000 mg/ (Sodium Chloride) 100 mls @ 200 mls/hr IVPB Q8H [facility] Last Admin: 01/20/17 21:12 Dose: 200 mls/hr Lactic Acid (Lac-Hydrin 12% Lotion (225 G)) 0 gm EXT BID [facility] Last Admin: 01/20/17 17:56 Dose: 1 applic Loperamide HCl (Imodium) 2 mg PO Q8 PRN PRN Reason: Diarrhea Methadone HCl (Methadone) 10 mg PO DAILY [facility] PRN Reason: Taper Stop: 01/22/17 10:14 Last Admin: 01/20/17 10:10 Dose: 15 mg Metoclopramide HCl (Reglan) 10 mg IVP Q8 [facility] Last Admin: 01/20/17 21:12 Dose: 10 mg Ondansetron HCl (Zofran Tab) 4 mg PO Q8 PRN PRN Reason: Nausea/Vomiting Pantoprazole Sodium (Protonix Inj) 40 mg IVP DAILY [facility] Last Admin: 01/20/17 10:15 Dose: Not Given - Labs Labs: 01/18/17 08:05 01/19/17 08:18 - Constitutional Appears: No Acute Distress - Head Exam Head Exam: NORMAL INSPECTION - Eye Exam Eye Exam: EOMI, PERRL - ENT Exam ENT Exam: Mucous Membranes Moist, Normal Oropharynx - Neck Exam Neck Exam: Normal Inspection - Respiratory Exam Respiratory Exam: Rhonchi (rIGHT SIDED.) - Cardiovascular Exam Cardiovascular Exam: REGULAR RHYTHM, +S1, +S2 - GI/Abdominal Exam GI & Abdominal Exam: Soft, Normal Bowel Sounds - Extremities Exam Extremities Exam: Pedal Edema (BILATERAL LOWER EXTREMITIES IN DRESSING.). absent: Calf Tenderness - Neurological Exam Neurological Exam: Awake, CN II-XII Intact, Oriented x3, Reflexes Normal - Psychiatric Exam Psychiatric exam: Normal Mood - Skin Skin Exam: Normal Color, Warm Assessment and Plan (1) Aspiration pneumonia Assessment & Plan: FOLLOW-UP CHEST X-RAY. CONTINUE iv ANTIBIOTICS Status: Acute (2) Cellulitis Assessment & Plan: WOUND CULTURE +VE MSSA. sTART iv aNCEF 1 G EVERY 8 HOURLY. 01/20. lOCAL WOUND CARE PER PODIATRY. Status: Acute (3) D-dimer, elevated Status: Acute (4) Leg swelling Status: Acute (5) Diarrhea Assessment & Plan: MUCH IMPROVED. sTOOLS NEGATIVE FOR sALMONELLA, sHIGELLA AND cAMPYLOBACTER Status: Acute
[2017-01-21] MEDS: Ammonium Lactate 12% Lotion (225 g) EXT SCH ×2 (10:23→17:52)
--- NOTE | 2017-01-21 13:50 | CP.PCM.PN ---
Subjective - Date & Time of Evaluation Date of Evaluation: 01/21/17 Time of Evaluation: 13:50 - Subjective Subjective: EXT: LESSEDEMA ULCERS HEALING C/S STAPH A. REST TO CLINDA , D/W ID Objective - Vital Signs/Intake and Output Vital Signs (last 24 hours): Temp Pulse Resp BP Pulse Ox 98.6 F 57 L 20 167/76 H 95 01/21/17 08:00 01/21/17 08:00 01/21/17 08:00 01/21/17 08:00 01/21/17 08:00 - Medications Medications: Current Medications Acetaminophen (Tylenol 325mg Tab) 650 mg PO Q6 PRN PRN Reason: Pain, moderate (4-7) Last Admin: 01/18/17 11:41 Dose: 650 mg Al Hydrox/Mg Hydrox/Simethicone (Maalox 30 Ml) 30 ml PO TID PRN PRN Reason: Indigestion / Heartburn Amlodipine Besylate (Norvasc) 10 mg PO DAILY [facility] Last Admin: 01/19/17 10:05 Dose: Not Given Clonidine HCl (Catapres) 0.1 mg PO Q6H [facility] Last Admin: 01/21/17 06:22 Dose: 0.1 mg Furosemide (Lasix) 20 mg IVP DAILY [facility] Last Admin: 01/19/17 10:05 Dose: Not Given Hydroxyzine HCl (Atarax) 25 mg PO Q6 PRN PRN Reason: Anxiety Cefazolin Sodium 1,000 mg/ (Sodium Chloride) 100 mls @ 200 mls/hr IVPB Q8H [facility] Last Admin: 01/21/17 13:40 Dose: 200 mls/hr Lactic Acid (Lac-Hydrin 12% Lotion (225 G)) 0 gm EXT BID [facility] Last Admin: 01/21/17 10:23 Dose: 1 applic Loperamide HCl (Imodium) 2 mg PO Q8 PRN PRN Reason: Diarrhea Methadone HCl (Methadone) 5 mg PO DAILY [facility] PRN Reason: Taper Stop: 01/22/17 10:14 Last Admin: 01/21/17 10:03 Dose: 5 mg Metoclopramide HCl (Reglan) 10 mg IVP Q8 [facility] Last Admin: 01/21/17 05:19 Dose: 10 mg Ondansetron HCl (Zofran Tab) 4 mg PO Q8 PRN PRN Reason: Nausea/Vomiting Pantoprazole Sodium (Protonix Inj) 40 mg IVP DAILY [facility] Last Admin: 01/21/17 10:15 Dose: 40 mg - Labs Labs: 01/18/17 08:05 01/19/17 08:18
--- NOTE | 2017-01-21 14:50 | CP.PCM.PN ---
Subjective - Date & Time of Evaluation Date of Evaluation: 01/21/17 Time of Evaluation: 14:50 - Subjective Subjective: AFEBRILE DENIES ANY FURTHER DIARRHOE/OR VOMITING. B/L LE DRESSINGS C/D/I. PT BEING F/U BY PODIATRY. Objective - Vital Signs/Intake and Output Vital Signs (last 24 hours): Temp Pulse Resp BP Pulse Ox 98.6 F 57 L 20 167/76 H 95 01/21/17 08:00 01/21/17 08:00 01/21/17 08:00 01/21/17 08:00 01/21/17 08:00 Intake and Output: 01/21/17 01/21/17 06:59 18:59 Intake Total 500 Balance 500 - Medications Medications: Current Medications Acetaminophen (Tylenol 325mg Tab) 650 mg PO Q6 PRN PRN Reason: Pain, moderate (4-7) Last Admin: 01/18/17 11:41 Dose: 650 mg Al Hydrox/Mg Hydrox/Simethicone (Maalox 30 Ml) 30 ml PO TID PRN PRN Reason: Indigestion / Heartburn Amlodipine Besylate (Norvasc) 10 mg PO DAILY [facility] Last Admin: 01/19/17 10:05 Dose: Not Given Clonidine HCl (Catapres) 0.1 mg PO Q6H [facility] Last Admin: 01/21/17 13:47 Dose: 0.1 mg Furosemide (Lasix) 20 mg IVP DAILY [facility] Last Admin: 01/19/17 10:05 Dose: Not Given Hydroxyzine HCl (Atarax) 25 mg PO Q6 PRN PRN Reason: Anxiety Cefazolin Sodium 1,000 mg/ (Sodium Chloride) 100 mls @ 200 mls/hr IVPB Q8H [facility] Last Admin: 01/21/17 13:40 Dose: 200 mls/hr Lactic Acid (Lac-Hydrin 12% Lotion (225 G)) 0 gm EXT BID [facility] Last Admin: 01/21/17 10:23 Dose: 1 applic Loperamide HCl (Imodium) 2 mg PO Q8 PRN PRN Reason: Diarrhea Methadone HCl (Methadone) 5 mg PO DAILY [facility] PRN Reason: Taper Stop: 01/22/17 10:14 Last Admin: 01/21/17 10:03 Dose: 5 mg Metoclopramide HCl (Reglan) 10 mg IVP Q8 [facility] Last Admin: 01/21/17 14:08 Dose: 10 mg Ondansetron HCl (Zofran Tab) 4 mg PO Q8 PRN PRN Reason: Nausea/Vomiting Pantoprazole Sodium (Protonix Inj) 40 mg IVP DAILY [facility] Last Admin: 01/21/17 10:15 Dose: 40 mg - Labs Labs: 01/18/17 08:05 01/19/17 08:18 - Constitutional Appears: No Acute Distress - Head Exam Head Exam: NORMAL INSPECTION - Eye Exam Eye Exam: EOMI, PERRL - ENT Exam ENT Exam: Normal Oropharynx - Neck Exam Neck Exam: Normal Inspection - Respiratory Exam Respiratory Exam: Decreased Breath Sounds - Cardiovascular Exam Cardiovascular Exam: REGULAR RHYTHM, +S1, +S2 - GI/Abdominal Exam GI & Abdominal Exam: Soft, Normal Bowel Sounds. absent: Tenderness - Extremities Exam Extremities Exam: Pedal Edema. absent: Calf Tenderness - Neurological Exam Neurological Exam: Alert, Awake, CN II-XII Intact, Oriented x3, Reflexes Normal - Psychiatric Exam Psychiatric exam: Normal Mood - Skin Skin Exam: Normal Color, Warm Assessment and Plan (1) Aspiration pneumonia Assessment & Plan: FOLLOW-UP CHEST X-RAY. CONTINUE iv ANTIBIOTICS Status: Acute (2) Cellulitis Assessment & Plan: WOUND CULTURE +VE MSSA. ON iv aNCEF 1 G EVERY 8 HOURLY. 01/20. lOCAL WOUND CARE PER PODIATRY. Status: Acute (3) D-dimer, elevated Status: Acute (4) Leg swelling Status: Acute (5) Diarrhea Assessment & Plan: IMPROVED. Status: Acute
--- NOTE | 2017-01-21 15:15 | RAD ---
PROCEDURE: CHEST RADIOGRAPH, 1 VIEW HISTORY: PNEUMONIA RT SIDED COMPARISON: Comparison is made to 01/16/2017 FINDINGS: LUNGS: Small bibasilar opacities may represent atelectasis. Small infiltrate at the right lower lung may represent pneumonia PLEURA: No pneumothorax or pleural fluid seen. CARDIOVASCULAR: Normal. OSSEOUS STRUCTURES: No significant abnormalities. VISUALIZED UPPER ABDOMEN: Normal. OTHER FINDINGS: None. IMPRESSION: Small infiltrate at the right lower lung may represent pneumonia.
[2017-01-22] MEDS: Ammonium Lactate 12% Lotion (225 g) EXT SCH ×2 (11:03→17:43)
--- NOTE | 2017-01-22 13:59 | CP.PCM.PN ---
Subjective - Date & Time of Evaluation Date of Evaluation: 01/22/17 Time of Evaluation: 12:00 - Subjective Subjective: 56 y/o male seen at bedside for f/u of b/l leg edema. Pt seen resting comfortably in bed at time of visit. Denies any acute events overnight. Says nursing has been applying lachydrin cream to both legs which he says is helping. Denies f/n/v/c/sob/cp at this time. Objective - Vital Signs/Intake and Output Vital Signs (last 24 hours): Temp Pulse Resp BP Pulse Ox 98.0 F 66 20 138/92 H 98 01/22/17 08:19 01/22/17 08:19 01/22/17 08:19 01/22/17 08:19 01/22/17 08:19 Intake and Output: 01/22/17 01/22/17 06:59 18:59 Intake Total 800 Balance 800 - Medications Medications: Current Medications Acetaminophen (Tylenol 325mg Tab) 650 mg PO Q6 PRN PRN Reason: Pain, moderate (4-7) Last Admin: 01/18/17 11:41 Dose: 650 mg Al Hydrox/Mg Hydrox/Simethicone (Maalox 30 Ml) 30 ml PO TID PRN PRN Reason: Indigestion / Heartburn Amlodipine Besylate (Norvasc) 10 mg PO DAILY [facility] Last Admin: 01/19/17 10:05 Dose: Not Given Clonidine HCl (Catapres) 0.1 mg PO Q6H [facility] Last Admin: 01/22/17 13:37 Dose: Not Given Furosemide (Lasix) 20 mg IVP DAILY [facility] Last Admin: 01/19/17 10:05 Dose: Not Given Hydroxyzine HCl (Atarax) 25 mg PO Q6 PRN PRN Reason: Anxiety Cefazolin Sodium 1,000 mg/ (Sodium Chloride) 100 mls @ 200 mls/hr IVPB Q8H [facility] Last Admin: 01/22/17 13:46 Dose: 200 mls/hr Lactic Acid (Lac-Hydrin 12% Lotion (225 G)) 0 gm EXT BID [facility] Last Admin: 01/22/17 11:03 Dose: 1 applic Loperamide HCl (Imodium) 2 mg PO Q8 PRN PRN Reason: Diarrhea Metoclopramide HCl (Reglan) 10 mg IVP Q8 [facility] Last Admin: 01/22/17 13:45 Dose: 10 mg Ondansetron HCl (Zofran Tab) 4 mg PO Q8 PRN PRN Reason: Nausea/Vomiting Pantoprazole Sodium (Protonix Inj) 40 mg IVP DAILY [facility] Last Admin: 01/22/17 12:00 Dose: 40 mg Zolpidem Tartrate (Ambien) 5 mg PO HS PRN PRN Reason: Insomnia Last Admin: 01/21/17 22:05 Dose: 5 mg - Labs Labs: 01/18/17 08:05 01/19/17 08:18 - Constitutional Appears: Well, Non-toxic, No Acute Distress - Extremities Exam Extremities Exam: absent: Calf Tenderness Additional comments: Vasc; palpable pedal pulses, b/l, TG wnl, CFT < 3 sec to all digits neuro: grossly intact derm: no edema, no erythema, early signs of venous skin changes to anterior and medial legs b/l, no open lesions, scabbing noted to multiple lesions on distal legs b/l, hyper and hypopigmentation of legs noted anteriorly, no drainage, no purulence, no malodor, hyperkeratotic lesion noted sub met 3 of right foot - Neurological Exam Neurological Exam: Alert, Awake, Oriented x3 - Psychiatric Exam Psychiatric exam: Normal Affect, Normal Mood Assessment and Plan - Assessment and Plan (Free Text) Assessment: 56 y/o male with no known pmhx seen at bedside for bilateral leg swelling Plan: patient S&E at beside, chart reviewed discussed in detail with attending Dr. Pritchett cont. applying lac hydrin to feet and legs b/l daily dressing removed so that patient may shower c/w dressing of xeroform, DSD Stable per podiatry pt to f/u with Dr. Pritchett as outpatient.
--- NOTE | 2017-01-22 15:17 | CP.PCM.PN ---
Subjective - Date & Time of Evaluation Date of Evaluation: 01/22/17 Time of Evaluation: 15:17 - Subjective Subjective: EXT: LESSEDEMA ULCERS HEALING C/S STAPH A. REST TO CLINDA , D/W ID Objective - Vital Signs/Intake and Output Vital Signs (last 24 hours): Temp Pulse Resp BP Pulse Ox 98.0 F 66 20 138/92 H 98 01/22/17 08:19 01/22/17 08:19 01/22/17 08:19 01/22/17 08:19 01/22/17 08:19 Intake and Output: 01/22/17 01/22/17 11:59 23:59 Intake Total 400 Balance 400 - Medications Medications: Current Medications Acetaminophen (Tylenol 325mg Tab) 650 mg PO Q6 PRN PRN Reason: Pain, moderate (4-7) Last Admin: 01/18/17 11:41 Dose: 650 mg Al Hydrox/Mg Hydrox/Simethicone (Maalox 30 Ml) 30 ml PO TID PRN PRN Reason: Indigestion / Heartburn Amlodipine Besylate (Norvasc) 10 mg PO DAILY [facility] Last Admin: 01/19/17 10:05 Dose: Not Given Clonidine HCl (Catapres) 0.1 mg PO Q6H [facility] Last Admin: 01/22/17 13:37 Dose: Not Given Furosemide (Lasix) 20 mg IVP DAILY [facility] Last Admin: 01/19/17 10:05 Dose: Not Given Hydroxyzine HCl (Atarax) 25 mg PO Q6 PRN PRN Reason: Anxiety Cefazolin Sodium 1,000 mg/ (Sodium Chloride) 100 mls @ 200 mls/hr IVPB Q8H [facility] Last Admin: 01/22/17 13:46 Dose: 200 mls/hr Lactic Acid (Lac-Hydrin 12% Lotion (225 G)) 0 gm EXT BID [facility] Last Admin: 01/22/17 11:03 Dose: 1 applic Loperamide HCl (Imodium) 2 mg PO Q8 PRN PRN Reason: Diarrhea Metoclopramide HCl (Reglan) 10 mg IVP Q8 [facility] Last Admin: 01/22/17 13:45 Dose: 10 mg Ondansetron HCl (Zofran Tab) 4 mg PO Q8 PRN PRN Reason: Nausea/Vomiting Pantoprazole Sodium (Protonix Inj) 40 mg IVP DAILY [facility] Last Admin: 01/22/17 12:00 Dose: 40 mg Zolpidem Tartrate (Ambien) 5 mg PO HS PRN PRN Reason: Insomnia Last Admin: 01/21/17 22:05 Dose: 5 mg - Labs Labs: 01/18/17 08:05 01/19/17 08:18
--- NOTE | 2017-01-22 22:52 | CP.PCM.PN ---
Subjective - Date & Time of Evaluation Date of Evaluation: 01/22/17 Time of Evaluation: 22:52 - Subjective Subjective: AFEBRILE NO NEW COMPLAINTS. NO SOB, NO CHEST PAIN CLINICALLY IMPROVING. Objective - Vital Signs/Intake and Output Vital Signs (last 24 hours): Temp Pulse Resp BP Pulse Ox 98.0 F 66 20 138/92 H 98 01/22/17 08:19 01/22/17 08:19 01/22/17 08:19 01/22/17 08:19 01/22/17 08:19 Intake and Output: 01/22/17 01/23/17 18:59 06:59 Intake Total 580 Balance 580 - Medications Medications: Current Medications Acetaminophen (Tylenol 325mg Tab) 650 mg PO Q6 PRN PRN Reason: Pain, moderate (4-7) Last Admin: 01/18/17 11:41 Dose: 650 mg Al Hydrox/Mg Hydrox/Simethicone (Maalox 30 Ml) 30 ml PO TID PRN PRN Reason: Indigestion / Heartburn Amlodipine Besylate (Norvasc) 10 mg PO DAILY [facility] Last Admin: 01/19/17 10:05 Dose: Not Given Clonidine HCl (Catapres) 0.1 mg PO Q6H [facility] Last Admin: 01/22/17 17:45 Dose: 0.1 mg Furosemide (Lasix) 20 mg IVP DAILY [facility] Last Admin: 01/19/17 10:05 Dose: Not Given Hydroxyzine HCl (Atarax) 25 mg PO Q6 PRN PRN Reason: Anxiety Cefazolin Sodium 1,000 mg/ (Sodium Chloride) 100 mls @ 200 mls/hr IVPB Q8H [facility] Last Admin: 01/22/17 21:09 Dose: 200 mls/hr Lactic Acid (Lac-Hydrin 12% Lotion (225 G)) 0 gm EXT BID [facility] Last Admin: 01/22/17 17:43 Dose: 1 applic Loperamide HCl (Imodium) 2 mg PO Q8 PRN PRN Reason: Diarrhea Metoclopramide HCl (Reglan) 10 mg IVP Q8 [facility] Last Admin: 01/22/17 21:09 Dose: 10 mg Ondansetron HCl (Zofran Tab) 4 mg PO Q8 PRN PRN Reason: Nausea/Vomiting Pantoprazole Sodium (Protonix Inj) 40 mg IVP DAILY [facility] Last Admin: 01/22/17 12:00 Dose: 40 mg Zolpidem Tartrate (Ambien) 5 mg PO HS PRN PRN Reason: Insomnia Last Admin: 01/22/17 21:09 Dose: 5 mg - Labs Labs: 01/18/17 08:05 01/19/17 08:18 - Constitutional Appears: No Acute Distress - Head Exam Head Exam: NORMAL INSPECTION - Eye Exam Eye Exam: EOMI, PERRL - ENT Exam ENT Exam: Normal Oropharynx - Neck Exam Neck Exam: Normal Inspection - Respiratory Exam Respiratory Exam: Decreased Breath Sounds - Cardiovascular Exam Cardiovascular Exam: REGULAR RHYTHM, +S1, +S2 - GI/Abdominal Exam GI & Abdominal Exam: Soft, Normal Bowel Sounds. absent: Tenderness - Extremities Exam Extremities Exam: Pedal Edema (BILATERAL LOWER EXTREMITY DRESSING IN PLACE.). absent: Calf Tenderness - Neurological Exam Neurological Exam: Alert, Awake, CN II-XII Intact, Oriented x3 - Psychiatric Exam Psychiatric exam: Normal Mood - Skin Skin Exam: Normal Color, Warm Assessment and Plan (1) Aspiration pneumonia Assessment & Plan: FOLLOW-UP CHEST X-RAY. CONTINUE iv ANTIBIOTICS Status: Acute (2) Cellulitis Assessment & Plan: WOUND CULTURE +VE MSSA. ON iv aNCEF 1 G EVERY 8 HOURLY. 01/20. lOCAL WOUND CARE PER PODIATRY. Status: Acute (3) D-dimer, elevated Status: Acute (4) Leg swelling Status: Acute (5) Diarrhea Status: Acute
[2017-01-23 08:55] VITALS: BP 124/87; PULSE 61; TEMP 98.8; O2SAT 97
--- NOTE | 2017-01-23 11:49 | CP.PCM.PN ---
Subjective - Date & Time of Evaluation Date of Evaluation: 01/23/17 Time of Evaluation: 11:49 Objective - Vital Signs/Intake and Output Vital Signs (last 24 hours): Temp Pulse Resp BP Pulse Ox 98.8 F 61 20 124/87 97 01/23/17 08:52 01/23/17 08:52 01/23/17 08:52 01/23/17 08:52 01/23/17 08:52 Intake and Output: 01/23/17 01/23/17 06:59 18:59 Intake Total 400 300 Balance 400 300 - Medications Medications: Current Medications Acetaminophen (Tylenol 325mg Tab) 650 mg PO Q6 PRN PRN Reason: Pain, moderate (4-7) Last Admin: 01/18/17 11:41 Dose: 650 mg Al Hydrox/Mg Hydrox/Simethicone (Maalox 30 Ml) 30 ml PO TID PRN PRN Reason: Indigestion / Heartburn Amlodipine Besylate (Norvasc) 10 mg PO DAILY [facility] Last Admin: 01/19/17 10:05 Dose: Not Given Clonidine HCl (Catapres) 0.1 mg PO Q6H [facility] Last Admin: 01/23/17 05:47 Dose: Not Given Furosemide (Lasix) 20 mg IVP DAILY [facility] Last Admin: 01/19/17 10:05 Dose: Not Given Hydroxyzine HCl (Atarax) 25 mg PO Q6 PRN PRN Reason: Anxiety Cefazolin Sodium 1,000 mg/ (Sodium Chloride) 100 mls @ 200 mls/hr IVPB Q8H [facility] Last Admin: 01/23/17 05:26 Dose: 200 mls/hr Lactic Acid (Lac-Hydrin 12% Lotion (225 G)) 0 gm EXT BID [facility] Last Admin: 01/22/17 17:43 Dose: 1 applic Loperamide HCl (Imodium) 2 mg PO Q8 PRN PRN Reason: Diarrhea Metoclopramide HCl (Reglan) 10 mg IVP Q8 [facility] Last Admin: 01/23/17 05:41 Dose: 10 mg Ondansetron HCl (Zofran Tab) 4 mg PO Q8 PRN PRN Reason: Nausea/Vomiting Pantoprazole Sodium (Protonix Inj) 40 mg IVP DAILY [facility] Last Admin: 01/23/17 10:04 Dose: 40 mg Zolpidem Tartrate (Ambien) 5 mg PO HS PRN PRN Reason: Insomnia Last Admin: 01/22/17 21:09 Dose: 5 mg - Labs Labs: 01/18/17 08:05 01/19/17 08:18 Assessment and Plan (1) Aspiration pneumonia Status: Acute (2) Cellulitis Status: Acute (3) D-dimer, elevated Status: Acute (4) Leg swelling Status: Acute (5) Diarrhea Status: Acute
--- NOTE | 2017-01-23 13:30 | CP.PCM.DIS ---
Provider - Provider Date of Admission: 01/17/17 01:00 Attending physician: Nakul Trujillo MD Time Spent in preparation of Discharge (in minutes): 30 Hospital Course - Lab Results Lab Results: Micro Results 01/17/17 01:30 Blood-Venous Blood Culture - Final NO GROWTH AFTER 5 DAYS 01/17/17 01:30 Blood-Venous Gram Stain - Final TEST NOT PERFORMED 01/18/17 00:59 Stool Stool Culture - Final NO SALMONELLA, SHIGELLA OR CAMPYLOBACTER ISOLATED. 01/17/17 10:00 Leg - Right Gram Stain - Final 01/17/17 10:00 Leg - Right Wound Culture - Final Staphylococcus Aureus Most Recent Lab Values WBC 8.6 K/uL (4.8-10.8) 01/18/17 08:05 RBC 4.50 Mil/uL (4.40-5.90) 01/18/17 08:05 Hgb 13.7 g/dL (12.0-18.0) 01/18/17 08:05 Hct 40.6 % (35.0-51.0) 01/18/17 08:05 MCV 90.2 fL (80.0-94.0) 01/18/17 08:05 MCH 30.4 pg (27.0-31.0) 01/18/17 08:05 MCHC 33.7 g/dL (33.0-37.0) 01/18/17 08:05 RDW 13.7 % (11.5-14.5) 01/18/17 08:05 Plt Count 462 K/uL (130-400) H D 01/18/17 08:05 MPV 8.2 fL (7.2-11.7) 01/18/17 08:05 Neut % (Auto) 73.3 % (50.0-75.0) 01/18/17 08:05 Lymph % (Auto) 10.3 % (20.0-40.0) L 01/18/17 08:05 [place] % (Auto) 13.5 % (0.0-10.0) H 01/18/17 08:05 Eos % (Auto) 2.1 % (0.0-4.0) 01/18/17 08:05 Baso % (Auto) 0.8 % (0.0-2.0) 01/18/17 08:05 Neut # 6.3 K/uL (1.8-7.0) 01/18/17 08:05 Lymph # 0.9 K/uL (1.0-4.3) L 01/18/17 08:05 [place] # 1.2 K/uL (0.0-0.8) H 01/18/17 08:05 Eos # 0.2 K/uL (0.0-0.7) 01/18/17 08:05 Baso # 0.1 K/uL (0.0-0.2) 01/18/17 08:05 Neutrophils % (Manual) 76 % (50-75) H 01/16/17 17:13 Lymphocytes % (Manual) 12 % (20-40) L 01/16/17 17:13 Monocytes % (Manual) 6 % (0-10) 01/16/17 17:13 Eosinophils % (Manual) 6 % (0-4) H 01/16/17 17:13 Platelet Estimate Normal (NORMAL) 01/16/17 17:13 Hypochromasia (manual) Slight 01/16/17 17:13 Poikilocytosis (manual Slight 01/16/17 17:13 Anisocytosis (manual) Slight 01/16/17 17:13 D-Dimer, Quantitative 742 ng/mlDDU (0-243) H 01/16/17 18:49 Sodium 134 mmol/L (132-148) 01/19/17 08:18 Potassium 3.8 mmol/L (3.6-5.2) 01/19/17 08:18 Chloride 97 mmol/L (98-107) L 01/19/17 08:18 Carbon Dioxide 27 mmol/L (22-30) 01/19/17 08:18 Anion Gap 14 (10-20) 01/19/17 08:18 BUN 19 mg/dL (9-20) 01/19/17 08:18 Creatinine 1.3 MG/DL (0.8-1.5) 01/19/17 08:18 Est GFR ( Amer) > 60 01/19/17 08:18 Est GFR (Non-Af Amer) 57 01/19/17 08:18 Random Glucose 112 mg/dL (75-110) H 01/19/17 08:18 Calcium 9.1 mg/dl (8.6-10.4) 01/19/17 08:18 Phosphorus 2.9 mg/dL (2.5-4.5) 01/18/17 08:05 Magnesium 2.0 mg/dL (1.6-2.3) 01/18/17 08:05 Total Bilirubin 0.8 mg/dL (0.2-1.3) 01/18/17 08:05 Direct Bilirubin 0.6 mg/dL (0.0-0.4) H 01/18/17 08:05 AST 33 U/L (17-59) 01/18/17 08:05 ALT 25 U/L (21-72) 01/18/17 08:05 Alkaline Phosphatase 143 U/L (38-126) H 01/18/17 08:05 Total Creatine Kinase 90 U/L (55-170) 01/16/17 17:13 CK-MB (Mass) 0.83 ng/mL (0.0-3.38) 01/16/17 17:13 Troponin I < 0.0120 ng/mL (0.00-0.120) 01/16/17 17:13 NT-Pro-B Natriuret Pep 396 pg/mL (0-900) 01/16/17 17:13 Total Protein 9.0 g/dL (6.3-8.3) H 01/18/17 08:05 Albumin 3.9 g/dL (3.5-5.0) 01/18/17 08:05 Globulin 5.1 gm/dL (2.2-3.9) H 01/18/17 08:05 Albumin/Globulin Ratio 0.8 (1.0-2.1) L 01/18/17 08:05 Stool Leukocytes, Qual Negative (NEGATIVE) 01/18/17 00:01 Urine Opiates Screen Positive (NEGATIVE) 01/17/17 16:33 Urine Methadone Screen Negative (NEGATIVE) 01/17/17 16:33 Ur Barbiturates Screen Negative (NEGATIVE) 01/17/17 16:33 Ur Phencyclidine Scrn Negative (NEGATIVE) 01/17/17 16:33 Ur Amphetamines Screen Negative (NEGATIVE) 01/17/17 16:33 U Benzodiazepines Scrn Negative (NEGATIVE) 01/17/17 16:33 U Oth Cocaine Metabols Negative (NEGATIVE) 01/17/17 16:33 U Cannabinoids Screen Negative (NEGATIVE) 01/17/17 16:33 C. difficile Ag & Toxin Negative (NEGATIVE) 01/18/17 00:59 - Hospital Course Hospital Course: PRESENTED TO ER WITH H/O SOB AND LEG EDEMA . CT CHEST , NORMAL , CXR , NORMAL TNI NEG , D-DIMER POS THERE IS ALSO ERYTHEMA OF LEGS PT HAD SEVERE HEROIN WITHDRAWAL AND RESPONDED WITH METHADONE ULCERS SHOWED STAPH AU. , NOT MRSA PT RESPODED TO IV AB PT IS STABLE FOR DICHARGE PO AB F/U MED. CLINIOC TO SEE VEIN SPECIALIST FOR FURTHER TREATMENT OF VENOUS STASIS Discharge Exam - Head Exam Head Exam: NORMAL INSPECTION Discharge Plan - Discharge Medications Prescriptions: cloNIDine [Catapres] 0.1 mg PO Q8H PRN #10 tab PRN Reason: Anxiety Ciprofloxacin HCl [Cipro] 500 mg PO BID #14 tablet traZODone [Desyrel] 50 mg PO HS PRN #10 tab PRN Reason: Insomnia - Follow Up Plan Condition: FAIR Disposition: HOME/ ROUTINE Instructions: Cellulitis (DC), Cellulitis (GEN), Heart Healthy Diet (DC), Chronic Hypertension (DC), Low Sodium Diet (GEN) Referrals: Nakul Trujillo MD [Staff Provider] - Ramos Pritchett DPM [Staff Provider] -
--- NOTE | 2017-01-23 15:15 | CP.PCM.PN ---
Subjective - Date & Time of Evaluation Date of Evaluation: 01/23/17 Time of Evaluation: 15:15 - Subjective Subjective: Alert, orientedx3, NAD. Objective - Vital Signs/Intake and Output Vital Signs (last 24 hours): Temp Pulse Resp BP Pulse Ox 98.8 F 61 20 124/87 97 01/23/17 08:52 01/23/17 08:52 01/23/17 08:52 01/23/17 08:52 01/23/17 08:52 Intake and Output: 01/23/17 01/23/17 06:59 18:59 Intake Total 400 300 Balance 400 300 - Medications Medications: Current Medications Acetaminophen (Tylenol 325mg Tab) 650 mg PO Q6 PRN PRN Reason: Pain, moderate (4-7) Last Admin: 01/18/17 11:41 Dose: 650 mg Al Hydrox/Mg Hydrox/Simethicone (Maalox 30 Ml) 30 ml PO TID PRN PRN Reason: Indigestion / Heartburn Amlodipine Besylate (Norvasc) 10 mg PO DAILY [facility] Last Admin: 01/19/17 10:05 Dose: Not Given Clonidine HCl (Catapres) 0.1 mg PO Q6H [facility] Last Admin: 01/23/17 12:26 Dose: 0.1 mg Furosemide (Lasix) 20 mg IVP DAILY [facility] Last Admin: 01/19/17 10:05 Dose: Not Given Hydroxyzine HCl (Atarax) 25 mg PO Q6 PRN PRN Reason: Anxiety Cefazolin Sodium 1,000 mg/ (Sodium Chloride) 100 mls @ 200 mls/hr IVPB Q8H [facility] Last Admin: 01/23/17 12:25 Dose: 200 mls/hr Lactic Acid (Lac-Hydrin 12% Lotion (225 G)) 0 gm EXT BID [facility] Last Admin: 01/22/17 17:43 Dose: 1 applic Loperamide HCl (Imodium) 2 mg PO Q8 PRN PRN Reason: Diarrhea Metoclopramide HCl (Reglan) 10 mg IVP Q8 [facility] Last Admin: 01/23/17 14:19 Dose: 10 mg Ondansetron HCl (Zofran Tab) 4 mg PO Q8 PRN PRN Reason: Nausea/Vomiting Pantoprazole Sodium (Protonix Inj) 40 mg IVP DAILY [facility] Last Admin: 01/23/17 10:04 Dose: 40 mg Zolpidem Tartrate (Ambien) 5 mg PO HS PRN PRN Reason: Insomnia Last Admin: 01/22/17 21:09 Dose: 5 mg - Labs Labs: 01/18/17 08:05 01/19/17 08:18 Assessment and Plan - Assessment and Plan (Free Text) Assessment: Patient is seen and examined. Alert and orientedx3, no acute pain or distress noted. d/w DR Trujillo, discharge plan for today and possible detox as outpatiet, as per psyche. Advised to follow up with podiatry for wound care and follow up.
== END 2017-01-23 15:00 | disposition home or self-care (01) | DRG 79 ==
LOC: C.ER 14:59 → C.9E 01-17 01:00 → C.3T 01-17 09:00
PROVIDERS: ADMIT Internal Medicine Cardiovascular Disease; ATTEND Internal Medicine Cardiovascular Disease
DX: J69.0 Pneumonitis due to inhalation of food and vomit (principal); L03.116 Cellulitis of left lower limb; L03.115 Cellulitis of right lower limb; I87.2 Venous insufficiency (chronic) (peripheral); F11.23 Opioid dependence with withdrawal; I11.0 Hypertensive heart disease with heart failure; I50.9 Heart failure, unspecified; B95.61 Methicillin susceptible Staphylococcus aureus infection as the cause of diseases classified elsewhere; R19.7 Diarrhea, unspecified; F10.10 Alcohol abuse, uncomplicated; K21.9 Gastro-esophageal reflux disease without esophagitis; F17.210 Nicotine dependence, cigarettes, uncomplicated

== ENCOUNTER 2017-01-31 11:03 | Emergency (ER) | payer MEDICAID ==
[2017-01-31 11:03] VITALS: BMI 27.5
--- NOTE | 2017-01-31 12:19 | C.PDOC ---
History Of Present Illness 56 y/o male, recently admitted to hospital for bilateral lower extremity edema, and discharged with PO abx after negative DVT studies. Patient presents requesting refill of his pain medication and BP medication as he was not able to follow-up with Dr. Trujillo due to the type of insurance he has. He reports that he has clinic follow-up next Monday. Patient reports his leg swelling has improved, but reports generalized fatigue and feeling anxious. Patient notes he cannot sleep due to anxiety. Denies fever, chills, chest pain or shortness of breath. Patient reports that he took his full course of cipro after discharge. PMD: Dr. Nakul Trujillo Time Seen by Provider: 01/31/17 11:42 Chief Complaint (Nursing): Shortness Of Breath History Per: Patient History/Exam Limitations: no limitations Onset/Duration Of Symptoms: Days Current Symptoms Are (Timing): Still Present Reports Recently: Hospitalized Recent travel outside of the [place]: No Past Medical History Reviewed: Historical Data, Nursing Documentation, Vital Signs Vital Signs: Last Vital Signs Temp 98.4 F 01/31/17 15:05 Pulse 82 01/31/17 15:05 Resp 18 01/31/17 15:05 BP 163/108 H 01/31/17 15:05 Pulse Ox 99 01/31/17 15:05 - Medical History PMH: Deep Vein Thrombosis (both legs), HTN Family History: States: Unknown Family Hx - Social History Hx Alcohol Use: Yes Hx Substance Use: Yes (heroin) - Immunization History Hx Tetanus Toxoid Vaccination: No Hx Influenza Vaccination: No Hx Pneumococcal Vaccination: No Review Of Systems Except As Marked, All Systems Reviewed And Found Negative. Constitutional: Negative for: Fever, Chills Cardiovascular: Positive for: Edema (bilateral lower extremities). Negative for : Chest Pain, Palpitations Respiratory: Negative for: Cough, Shortness of Breath, Wheezing Gastrointestinal: Negative for: Nausea, Vomiting, Abdominal Pain Neurological: Negative for: Headache, Dizziness Physical Exam - Physical Exam Appears: Non-toxic, No Acute Distress Skin: Warm, Dry Head: Atraumatic, Normacephalic Oral Mucosa: Moist Chest: Symmetrical Cardiovascular: Rhythm Regular Respiratory: Normal Breath Sounds, No Rales, No Rhonchi, No Wheezing Gastrointestinal/Abdominal: Soft, No Tenderness, No Guarding, No Rebound Back: Normal Inspection Extremity: Normal ROM, No Tenderness, Capillary Refill (< 2 sec.), Other (scant bilateral lower extremity edema, improved from 2 weeks ago as seen by this MD) Neurological/Psych: Oriented x3, Normal Speech, Normal Cognition ED Course And Treatment - Laboratory Results Result Diagrams: 01/31/17 12:58 01/31/17 12:58 O2 Sat by Pulse Oximetry: 100 (RA) Pulse Ox Interpretation: Normal Medical Decision Making Medical Decision Making: Plan: * EKG, labs ordered and reviewed * Reassessment Progress: Psych aware 1:48PM Psych evaluated. Patient is reporting anxiety but refusing inpatient or outpatient treatment.. 1:57PM EKG shows junctional rhythm at 65bpm. Labs including tsh and free t4 are grossly normal. Trop x 1 negative. Electrolyte WNL. Patient reports that he is concerned that he is loosing weight. Patient just had inpatient workup and had normal echo and cellulitis is improving. He was instructed on the importance of following up with clinic for further evaluation. He feels comfortable with this plan and is requesting medication refill. Disposition - Disposition Referrals: [facility] [Outside] Tremaine Garner MD [Staff Provider] - Disposition: HOME/ ROUTINE Disposition Time: 14:19 Condition: GOOD Additional Instructions: Follow up with [facility] or Dr. Garner within 2 days for further evaluation of your complaints. Return to ED if condition worsens. Prescriptions: cloNIDine [Catapres] 0.1 mg PO Q8 #20 tab traZODone [Desyrel] 25 mg PO HS #5 tab - Clinical Impression Clinical Impression: Fatigue, Weight loss, Anxiety - Scribe Statement The provider has reviewed the documentation as recorded by the Susanne Gerardo Provider Attestation: All medical record entries made by the Susanne were at my direction and personally dictated by me. I have reviewed the chart and agree that the record accurately reflects my personal performance of the history, physical exam, medical decision making, and the department course for this patient. I have also personally directed, reviewed, and agree with the discharge instructions and disposition.
[2017-01-31 13:06] LABS: BASO % 0.7 % (0.0-2.0); EOS # 1.2 K/uL (0.0-0.7); EOS % 22.7 % (0.0-4.0); HEMATOCRIT 38.4 % (35.0-51.0); LYMPH # 0.8 K/uL (1.0-4.3); LYMPH % 15.2 % (20.0-40.0); MEAN CELL VOLUME 88.7 fL (80.0-94.0); MEAN CORPUSCULAR HEMOGLOBIN 30.1 pg (27.0-31.0); MEAN CORPUSCULAR HGB CONC 33.9 g/dL (33.0-37.0); MONO # 0.4 K/uL (0.0-0.8); MONO % 6.7 % (0.0-10.0); PLATELET COUNT 451 K/uL (130-400); RED CELL DISTRIBUTION WIDTH 13.7 % (11.5-14.5); WHITE BLOOD COUNT 5.4 K/uL (4.8-10.8)
[2017-01-31 13:12] LABS: CHLORIDE 103 mmol/L (98-107); SODIUM 141 mmol/L (132-148)
[2017-01-31 13:13] LABS: POTASSIUM 3.5 mmol/L (3.6-5.2)
[2017-01-31 13:15] LABS: ALB/GLOB RATIO 0.9 (1.0-2.1); ALKALINE PHOSPHATASE 80 U/L (38-126); ALT/SGPT 21 U/L (21-72); AST/SGOT 21 U/L (17-59); BILIRUBIN,TOTAL 0.6 mg/dL (0.2-1.3); BLOOD UREA NITROGEN 8 mg/dL (9-20); CARBON DIOXIDE 21 mmol/L (22-30); GFR AFRICAN-AMERICAN > 60; GLUCOSE,RANDOM 111 mg/dL (75-110); TOTAL PROTEIN 7.9 g/dL (6.3-8.3)
[2017-01-31 13:16] LABS: CALCIUM 8.8 mg/dl (8.6-10.4)
[2017-01-31 13:32] LABS: EOSINOPHIL 22 % (0-4); NEUTROPHIL 56 % (50-75); REACTIVE LYMPHOCYTES 1 % (0-0); TOTAL CELLS COUNTED 100
[2017-01-31 13:46] LABS: THYROID STIMULATING HORMONE 1.13 mIU/L (0.46-4.68)
[2017-01-31 15:06] VITALS: BP 163/108; PULSE 82; RESP 18; TEMP 98.4
[2017-01-31 16:06] VITALS: O2SAT 100
--- NOTE | 2017-02-03 13:03 | CARD ---
APPROVED REPORT EKG Measurement Heart [id number] <Conclusion> Junctional rhythm Abnormal ECG
== END 2017-01-31 15:07 | disposition home or self-care (01) ==
LOC: C.ER 11:03
DX: R53.83 Other fatigue (principal); R63.4 Abnormal weight loss; F41.9 Anxiety disorder, unspecified